=== PATIENT | female | born 1995 | race Caucasian/White ===

== ENCOUNTER 2016-11-27 20:36 | Emergency (ER) | payer OTHER ==
[~2016-11-27 20:36] MED LIST: CLONIDINE HCL0.1 MG PO; PHENERGAN25 MG PO; PROZAC10 MG PO; VOLTAREN50 MG PO
[2016-11-27] MEDS ORDERED: IUD (20:54)
[2016-11-27 21:28] LABS: URINE SOURCE CLEAN CATCH
[2016-11-27 21:31] LABS: URINE APPEARANCE HAZY; URINE BILIRUBIN NEG (NEG); URINE BLOOD 1+ (NEG); URINE COLOR YELLOW; URINE GLUCOSE NEG (NORM); URINE KETONE NEG (NEG); URINE LEUKOCYTE ESTERASE NEG (NEG); URINE NITRATE NEG (NEG); URINE PROTEIN NEG (NEG); URINE UROBILINOGEN 0.2 MG/DL (NORM)
[2016-11-27 21:36] LABS: MICRO INDICATED? YES
[2016-11-27 21:37] LABS: URINE AMORPHOUS SEDIMENT AMORP PHOSPHATES; URINE BACTERIA NEG (NEG); URINE MUCUS PRESENT; URINE SQUAMOUS EPITHELIAL CELL OCCAS /[HPF]; URINE WBC 0-2 /[HPF] (0-5)
[2016-11-27] MEDS ORDERED: FLEXERIL10 MG PO (21:43)
[2016-11-27] MEDS ORDERED: VOLTAREN75 MG PO (21:43)
== END 2016-11-27 22:08 | disposition home or self-care (01) ==
LOC: SED 20:36
PROVIDERS: Emergency Medicine
DX: S39.012A Strain of muscle, fascia and tendon of lower back, initial encounter (principal); Z97.5 Presence of (intrauterine) contraceptive device; X58.XXXA Exposure to other specified factors, initial encounter; Y93.72 Activity, wrestling
CPT/HCPCS: 81003; 84703; 96372; 99283; J1885